=== PATIENT | male | born 1935 | race Caucasian/White ===

== ENCOUNTER 2021-07-16 07:41 | Observation (INO) ==
--- NOTE | 2021-06-11 14:47 | PAT Medication Instructions ---
Medication Instructions Date of Service June 11, 2021 Home Medications aspirin 81 mg tablet,delayed release 81 mg PO QAM atorvastatin 40 mg tablet 40 mg PO QAM isosorbide mononitrate 30 mg tablet,extended release 24 hr 30 mg PO QAM metoprolol tartrate 25 mg tablet 25 mg PO BID multivitamin with iron 1 tab PO QAM nitroglycerin 0.4 mg sublingual tablet 0.4 mg SL Q5M PRN vit C,N-Oe-isaeod-lutein-zeaxan 60 mg-13.5 mg-15 mg-2 mg-6 mg capsule 1 cap PO QAM Continue as directed nitroglycerin 0.4 mg sublingual tablet 0.4 mg SL Q5M PRN ASK your prescriber and surgeon aspirin 81 mg tablet,delayed release 81 mg PO QAM STOP taking 2 weeks before surgery (or as soon as possible if surgery is within 2 weeks) vit C,E-Qk-zdmzrw-lutein-zeaxan 60 mg-13.5 mg-15 mg-2 mg-6 mg capsule 1 cap PO QAM DO NOT take the morning of surgery multivitamin with iron 1 tab PO QAM Take morning of surgery With a small sip of water, OTHERWISE NOTHING TO EAT OR DRINK AFTER MIDNIGHT: atorvastatin 40 mg tablet 40 mg PO QAM isosorbide mononitrate 30 mg tablet,extended release 24 hr 30 mg PO QAM metoprolol tartrate 25 mg tablet 25 mg PO BID Take evening before surgery metoprolol tartrate 25 mg tablet 25 mg PO BID Other Notes If you have any questions please call us at [phone] or [phone] or [phone] or [phone]
--- NOTE | 2021-06-16 14:26 | Anesthesiology Consultation ---
Date of Service June 16, 2021 Assessment & Plan (1) Encounter for pre-operative examination: - Cardiac hx: Patient has not seen [facility] cardiology since 07/2020. Will arrange preop cardiac evaluation ([facility]/Dr. Ponce). - COVID screening: Per assessment on 06/16: No known COVID-19 positive contacts or current COVID-19 related symptoms. Travel screen negative. Patient vaccinated. Surgeon arranging preop COVID testing. Awaiting results. Chart Review Chart Review: Patient seen in Pre Admission Testing Teaching & Discussion Pre-Anesthesia Teaching/Discussion Notes: Instructed NPO after midnight before surgery,except medications with 15 cc of water. Medication instructions provided according to the PAT guidelines. History Surgery Operation Date: 07/16/21 12:35 Proposed Procedures p Right Total Shoulder Arthroplasty Reverse - Raffaele Rush DO Height/Weight Height: 5 ft 10 in Weight: 76 kg Allergies Allergy/AdvReac Type Severity Reaction Status Date / Time sulfamethoxazole Allergy Intermediate Rash Verified 06/11/21 11:58 [From Bactrim] tetracycline Allergy Intermediate Rash Verified 06/11/21 11:58 trimethoprim [From Bactrim] Allergy Intermediate Rash Verified 06/11/21 11:58 Medications Home Medications Medication Instructions Recorded Confirmed Last Taken Oxygen Home #1 ea 12/25/18 04/20/21 Unknown aspirin 81 mg tablet,delayed 81 mg PO QAM tab 12/25/18 06/11/21 Unknown release atorvastatin 40 mg tablet 40 mg PO QAM #30 tab 12/25/18 06/11/21 Unknown isosorbide mononitrate 30 mg 30 mg PO QAM #30 tab 12/25/18 06/11/21 Unknown tablet,extended release 24 hr metoprolol tartrate 25 mg tablet 25 mg PO BID #180 tab 12/25/18 06/11/21 Unknown multivitamin with iron 1 tab PO QAM 12/25/18 06/11/21 Unknown nitroglycerin 0.4 mg sublingual 0.4 mg SL Q5M PRN tab 12/25/18 06/11/21 Unknown tablet vit C,D-Qe-phsxiv-lutein-zeaxan 60 1 cap PO QAM cap 12/25/18 06/11/21 Unknown mg-13.5 mg-15 mg-2 mg-6 mg capsule Past Medical History Medical History Arteriosclerosis of coronary artery Chronic kidney disease, stage III (moderate) Coronary artery disease NIGEL to mid LAD and NIGEL x2 to RCA (2017 cardiac cath > distal RCA was found to be 100% occluded with jhyn-so-cvsfo collaterals. During that catheterization was also noted he had a trifurcate in left circumflex and he had a 70% stenosis involving 1 of the sub-branches > medically managed Follows with Dr. Ponce ([place]) Diverticulitis Heart attack 2014 History of anemia Hyperlipidemia Hypertension Moderate obstructive sleep apnea CPAP (compliant) Pancreatic duct dilated SSS (sick sinus syndrome) Asymptomatic, no hx syncope, cardio monitoring Exercise / Class Metabolic Activity II 4-5 Yardwork/Stairs/Walk up hill Past Family History Family History Sister Heart disease Cancer Father Myocardial infarction Past Surgical History Surgical History H/O arthroscopic knee surgery R/L H/O hernia repair H/O repair of rotator cuff left History of colonoscopy Hx of cardiac cath NIGEL to mid LAD and NIGEL x2 to RCA (2017 > medically managed Hx of cataract surgery R/L Hx of tonsillectomy Past Anesthesia History No Hx of Anesthesia Complications and No Family Hx of Anesthesia Complications History of PONV No Hx of PONV and No Hx of Motion Sickness Social History Smoking Status: Former smoker Do You Dip or Chew Tobacco: No Smoking End Date: Quit 50 years ago Hx Alcohol Use: Yes Alcohol type: hard liquor alcohol intake frequency: holidays/special occasions only Hx Substance Use: No substance use type: does not use Review of Systems Patient denies chest pain, shortness of breath, dyspnea on exertion, fever, chills, cough, wheezing, palpitations. Physical Exam Vital Signs VITALS BP 145/73 P 54 TEMP 97.6 SP02 99%RA RESP 16 PHYSICAL Full cervical extension range of motion. Full TMJ range of motion. TMD 3 finger breaths Mallampati Score 2 Dentition: missing side Lungs: minor lower lung base crackles Cardiac: regular rate and rhythm, no murmurs noted Spine: normal Carotid arteries: negative bruit Extremities: no edema Lab Results Anesthesia Preop Results Results Anesthesia Widget: WBC 5.74 K/uL (4.8-10.8) 04/27/22 Hgb 14.1 g/dL (14.0-18.0) 06/16/21 Hct 41.7 % (42-52) L 06/16/21 Plt 236 K/uL (130-400) 06/16/21 Na 139 mmol/L (136-145) 06/16/21 K 4.6 mmol/L (3.5-5.1) 06/16/21 Cl 106 mmol/L (98-107) 06/16/21 CO2 26 mmol/L (21-32) 06/16/21 BUN 31 mg/dl (6-23) H 06/16/21 Creat 1.26 mg/dl (0.6-1.4) 06/16/21 Glucose Level 99 mg/dl (70-99(Fasting)) 06/16/21 PT 10.7 Seconds (9.0-12.0) 06/16/21 PTT 28.5 Seconds (21.0-31.0) 06/16/21 INR 1.0 (0.9-1.1) 06/16/21 Blood Type O Positive 06/16/21 Antibody Screen NEGATIVE 06/16/21 Testing Electrocardiogram Date: 06/16/21 SB with first degree AVB at 51bpm. Inferior infarct, age undetermined. TWI lead III. NS TWA AVF. Will forward preop EKG to cardiology. Will be arranging preop cardiac evaluation appt. Chest X-Ray Date: 06/16/21 Findings: + NAD Echocardiogram Date: 03/24/15 EF 50%. Proximal inferior wall, proximal inferior lateral garcia are hypokinetic. Mid inferior wall is mildly hypokinetic. Rest of LV contracts normally. Grade 1 diastolic dysfunction. No significant valvular disease. Stress Test Date: 01/09/19 Type: nuclear Abnormal pharmacologic Cardiolite stress test demonstrating circumflex territory ischemia. Normal stress EKG. Mild hypokinesis of the inferior lateral wall. EF 64%. 79% MPHR. Pt had cardiac cath done in 2018 noting distal RCA was found to be 100% occluded with qbsj-oo-ftzhj collaterals and trifurcate in left circumflex and he had a 70% stenosis involving 1 of the sub-branches. Per [facility] cardio records, abnormal stress test in 2019 felt to be secondary to his known left circumflex disease and decision made to be medically managed. Cardiac Catheterization Date: 11/13/17 Mildly diseased left main. Moderately diseased LAD. Mid LAD has existing stent. 40% mid circumflex lesion. 70% lesion in the proximal portion of the first marginal. 100% lesion in the distal RCA. 50% lesion in the mid RCA.
--- NOTE | 2021-07-15 12:16 | History & Physical Report ---
Date of Service July 15, 2021 Assessment & Plan (1) Rotator cuff tear, right: We will proceed with a right reverse shoulder arthroplasty. Postoperatively he will be placed in a sling and kept overnight in the hospital for postop medical management. He plans to have the hospital set up home health upon discharge. 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 Primary Care Provider: Shamar Wei MD Ming is a pleasant 85-year-old male who was shoveling snow when he injured his right shoulder about 3 months ago. 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 I gave him injection a year ago which seemed to help. Unfortunately the last injection I gave did not help as much. He is unable to initiate forward elevation. After failing conservative treatment, he has elected to proceed with a right reverse shoulder arthroplasty. . Allergies Allergy/AdvReac Type Severity Reaction Status Date / Time sulfamethoxazole Allergy Intermediate Rash Verified 06/11/21 11:58 [From Bactrim] tetracycline Allergy Intermediate Rash Verified 06/11/21 11:58 trimethoprim [From Bactrim] Allergy Intermediate Rash Verified 06/11/21 11:58 Home Medications Medication Instructions Recorded Confirmed Type Oxygen Home #1 ea 12/25/18 04/20/21 History aspirin 81 mg tablet,delayed 81 mg PO QAM tab 12/25/18 06/11/21 History release atorvastatin 40 mg tablet 40 mg PO QAM #30 tab 12/25/18 06/11/21 History isosorbide mononitrate 30 mg 30 mg PO QAM #30 tab 12/25/18 06/11/21 History tablet,extended release 24 hr metoprolol tartrate 25 mg tablet 25 mg PO BID #180 tab 12/25/18 06/11/21 History multivitamin with iron 1 tab PO QAM 12/25/18 06/11/21 History nitroglycerin 0.4 mg sublingual 0.4 mg SL Q5M PRN tab 12/25/18 06/11/21 History tablet vit C,E-Pw-bljtgw-lutein-zeaxan 60 1 cap PO QAM cap 12/25/18 06/11/21 History mg-13.5 mg-15 mg-2 mg-6 mg capsule Past Med/Surg History Medical History Arteriosclerosis of coronary artery Chronic kidney disease, stage III (moderate) Coronary artery disease NIGEL to mid LAD and NIGEL x2 to RCA (2017 cardiac cath > distal RCA was found to be 100% occluded with nvgg-[id number]-iuxiq collaterals. During that catheterization was also noted he had a trifurcate in left circumflex and he had a 70% stenosis involving 1 of the sub-branches > medically managed Follows with Dr. Ponce ([place]) Diverticulitis Heart attack 2014 History of anemia Hyperlipidemia Hypertension Moderate obstructive sleep apnea CPAP (compliant) Pancreatic duct dilated SSS (sick sinus syndrome) Asymptomatic, no hx syncope, cardio monitoring Surgical History H/O arthroscopic knee surgery R/L H/O hernia repair H/O repair of rotator cuff left History of colonoscopy Hx of cardiac cath NIGEL to mid LAD and NIGEL x2 to RCA (2017 > medically managed Hx of cataract surgery R/L Hx of tonsillectomy Family History Sister Heart disease Cancer Father Myocardial infarction Social History Smoking Status: Former smoker Second Hand Exposure: No; Hx Alcohol Use: Yes Alcohol type: hard liquor Hx Substance Use: No Preferred Language: Nepalese Communication Ability: Effective Visual Impairment: No Limitations Hearing Ability: Normal 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 Physical Exam On physical examination of the right shoulder, he has about 40 degrees forward elevation and 40 degrees of abduction. He has 3 out of 5 muscle strength throughout. Constitutional WD/WN, vitals as above Eyes PERRL, conjunctivae normal, anicteric sclerae ENMT external ear and nose normal, oropharynx normal Neck trachea midline, no thyromegaly Respiratory normal respiratory effort Cardiovascular RRR, no murmur, no edema Gastrointestinal (Abdomen) normal bowel sounds, soft, nontender, no hepatosplenomegaly Psychiatric A+Ox3, euthymic affect Results & Data Results & Data Laboratory Results . Diagnostic Findings X-rays of the right shoulder show signs of cuff arthropathy. The humeral heads superiorly migrated in the glenoid. PG Care Time/CCT Total # of Minutes Spent Total Time Spent with Patient: Total time spent is greater than 50% in coordination of care (as documented) at patient's floor/unit and/or counseling patient: Coding Level of Care Code None Diagnoses Rotator cuff tear, right M75.101
[~2021-07-16 07:41] MED LIST: ACETAMINOPHEN 500 MG TAB PO SCH; BUPIVACAINE 0.5 % 5 MG/1 ML PF 10ML VIAL ONE; FAMOTIDINE 20 MG TAB PO SCH; GABAPENTIN 300 MG CAP PO SCH; Ketorolac (*for OR use only*) 30 MG, dexAMETHasone 4 MG, KETAMINE HCL (**OR use only) 1... INFIL SCH; LR 15ML/HR IV SCH; LR 60ML/HR IV SCH; TRANEXAMIC ACID 1,000 MG **IV Intra-op IV SCH; TRANEXAMIC ACID 1,000 MG **IV Pre-op IV SCH; ceFAZolin 1000MG 1,000 MG/7.5 ML SYR IV SCH; dexAMETHasone 4 MG TAB PO SCH
[2021-07-16] MEDS ORDERED: PROPOFOL IV EMULSION 10 MG/ML 20 ML VIAL IV ONE (08:30)
[2021-07-16] MEDS ORDERED: ONDANSETRON INJ 2 MG/ML 2 ML VIAL ONE (08:30)
[2021-07-16] MEDS ORDERED: DEXAMETHASONE SOD INJ 4 MG/ML VIAL ONE (08:30)
[2021-07-16] MEDS ORDERED: LIDOCAINE 2% 2 ML VIAL/AMP(20MG/ML) INFIL ONE (08:30)
[2021-07-16] MEDS ORDERED: fentaNYL citrate 100 MCG/2 ML VIAL ONE (08:31)
[2021-07-16] MEDS ORDERED: MIDAZOLAM HCL 1 MG/ML 2ML VIAL ONE (08:31)
--- NOTE | 2021-07-16 09:08 | History & Physical Bridge Note ---
Date of Service July 16, 2021 History & Physical Bridge Note I have examined the patient, reviewed the History & Physical and in the interval since the performance of the History & Physical I have noted the following changes of clinical significance: no changes noted
[2021-07-16] MEDS ORDERED: ONDANSETRON INJ 2 MG/ML 2 ML VIAL IV PRN ×2 (09:39→13:20)
[2021-07-16] MEDS ORDERED: fentaNYL citrate 100 MCG/2 ML VIAL IV PRN (09:39)
[2021-07-16] MEDS ORDERED: ATROPINE SULFATE 0.1 MG/ML 10ML SYR IV PRN (09:39)
[2021-07-16] MEDS ORDERED: ORTHO JOINT ANESTHETIC ONE (09:41)
[2021-07-16] MEDS ORDERED: ePHEDrine sulfate 50 MG/ML AMP ONE (10:44)
[2021-07-16] MEDS ORDERED: GLYCOPYRROLATE 0.2 MG/ML VIAL ONE (10:44)
--- NOTE | 2021-07-16 11:36 | Operative Report ---
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 long head of the biceps tendon I identified the patient and participated in the time-out.: Yes Procedure Operation Date: 07/16/21 10:10 Actual Procedures p Right Reverse Total Shoulder Arthroplasty(Right) with open biceps tenodesis as a distinct and separate procedure (modifier 59)- Raffaele Rush DO Surgeon Raffaele Rush, Business Services Sales Representative Raffaele Rojas PAC Estimated Blood Loss 150 Findings Consistent with Post-Op Diagnosis Specimens Right humeral head Complications none Disposition Disposition: Recovery Room Indications Sang is a pleasant 86-year-old male who is dealing with 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 X-rays clinical examination were diagnostic for cuff arthropathy. After failing conservative treatment, he elected proceed with a right reverse shoulder arthroplasty. Description of Procedure A CPT code modifier 59: The long head of the biceps tendon was enlarged and inflamed consistent with tendinopathy. A tenodesis was opted. This was a separate and distinct portion of the procedure. For these reasons, a CPT code modifier 59 will be added to this case. Implants used: I used a [employer] Comprehensive reverse total shoulder arthroplasty system with a size 13 press fit micro humeral stem, a standard humeral tray and a standard humeral bearing, a 25 mm small augment baseplate with a 6.5 mm central screw and superior and inferior locking screws, and a size 40 mm eccentric glenosphere. Ming arrived at [facility] for the above procedure. He was seen in the preoperative holding area and the operative extremity was identified and signed. He was given a preoperative antibiotic, TXA, and an interscalene nerve block. He was taken back to the operating room, laid on table in supine position, and put under general anesthesia. He was then put into the beachchair position. The shoulder was then prepped and draped in sterile fashion. A timeout was done and the patient and the operative extremity was properly identified. A deltopectoral approach was used. Dissection was taken down through the fascia and the deltoid was retracted laterally and the conjoined tendon was retracted medially. The anterior shoulder was exposed. The biceps groove was opened up and the biceps tendon was examined extensively. 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 The long head of the biceps tendon was then tenodesed to the upper border of the pectoralis major. This was a separate and distinct portion of the procedure. The subscapularis was then directly released off the lesser tuberosity with a peel technique. The inferior capsule was released and the humeral head was dislocated. A canal finding reamer was sent down the center of the humeral canal. Sequential reaming up to a size 13 reamer was done. Off that reamer, a proximal humeral resection guide was placed. The proximal humerus was resected at 135 of inclination and 25 of retroversion. Osteophytes were then removed and the glenoid was exposed. Time was spent doing a complete capsular and labral release. The glenoid guide was then placed in the inferior aspect of the glenoid. A 3.2 mm Steinmann pin was then placed into the glenoid vault at 10 of inclination. The glenoid baseplate was then reamed. The final size 25 mm small augment baseplate was then impacted in the place. A 6.5 mm central screw was then placed followed by superior and inferior locking screws. A 40 mm eccentric glenosphere was then impacted into place. Surrounding soft tissues were then injected with 100 cc an orthopedic pain control cocktail. The proximal humerus was then exposed. Sequential broaching of the humerus up to a size 13 broach was done. Off that broach a standard humeral tray was trialed. The shoulder was then reduced, brought through a full range of motion, and felt to be stable. The shoulder was then dislocated and the broach was removed. The final size 13 micro press-fit humeral stem was then impacted into place. A standard humeral bearing was then snapped onto a standard humeral tray. The humeral tray was then impacted onto the humeral stem. The shoulder was once again reduced, brought through a full range of motion, and felt to be stable. The subscapularis was then tenodesed back to the lesser tuberosity with transosseous FiberWire sutures and side to side sutures with the arm in 45 of external rotation. A dilute betadyne lavage was then done for 3 minutes. The joint was then irrigated with normal saline solution. Hemostasis was obtained. The interval was closed with 2-0 Vicryl suture. The skin was then closed with 2-0 Vicryl and michelle. A Silverlon dressing was placed and the arm was rested in a regular arm sling. He was then extubated and transferred to a hospital bed. He taken to the postanesthesia care unit in stable condition. He tolerated the procedure well. Raffaele Rojas PA-C, was present for the entire procedure. He was critical for patient positioning, prepping, draping, retraction exposure, wound closure and application of sterile dressing. I attest to the content of the Intraoperative Record and any orders documented therein. Any exceptions are noted below.
[2021-07-16] MEDS ORDERED: NITROGLYCERIN SL 0.4 MG/TAB TAB SL PRN (13:20)
[2021-07-16] MEDS ORDERED: oxyCODONE HCL IR 5 MG TAB (IMMEDIATE RELEASE) PO PRN (13:20)
[2021-07-16] MEDS ORDERED: bisacodyL 10 MG SUPP PR PRN (13:20)
[2021-07-16] MEDS ORDERED: SODIUM CHLORIDE 0.9% 1000ML 1,000 ML IV SCH (13:20)
[2021-07-16] MEDS ORDERED: HYDROmorphone INJ 0.5 MG/0.5 ML SYR IV PRN (13:20)
[2021-07-16] MEDS ORDERED: METOCLOPRAMIDE HCL INJ 5 MG/ML 2 ML VIAL IV PRN (13:20)
[2021-07-16] MEDS ORDERED: NALOXONE HCL 0.4 MG/1 ML VIAL/CARP IV PRN (13:20)
[2021-07-16] MEDS ORDERED: MAGNESIUM HYDROXIDE SUSP 30 ML UDC PO PRN (13:20)
--- NOTE | 2021-07-16 14:05 | XRay Report ---
XR shoulder RT min 2V routine CLINICAL HISTORY: Post shoulder surgery. Status post shoulder replacement COMPARISON STUDY: 05/25/2016 TECHNIQUE: 2 right shoulder views FINDINGS: The patient is status post total shoulder replacement with humeral head and glenoid compone nts. The prosthetic components are in anatomic alignment with no acute abnormality identified. Skin s taples are present from the recent procedure. IMPRESSION: 1. Status post total shoulder replacement ACT 112: Negative or not required by law. Electronically signed by: Wily Strong M.D. 07/16/2021 2:04 PM
--- NOTE | 2021-07-16 14:33 | Anesthesiology Progress Note ---
Date of Service July 16, 2021 Anesthesia Post Procedure Vital Signs Vital Signs: Temp Pulse Pulse Resp BP Pulse Ox 07/16/21 14:18 36.4 C L 61 18 98/60 L 96 07/16/21 13:48 36.7 C 63 16 110/68 97 07/16/21 13:15 36.4 C L 57 L 18 104/63 95 07/16/21 13:00 36.1 C L 61 16 101/59 L 95 07/16/21 12:50 62 16 96/64 L 95 07/16/21 12:40 36.1 C L 59 L 14 101/63 95 07/16/21 12:30 61 12 105/66 96 07/16/21 12:20 62 14 118/71 95 07/16/21 12:10 62 12 121/73 99 07/16/21 12:00 61 12 124/74 100 07/16/21 11:53 35.8 C L 62 12 124/69 99 07/16/21 08:04 36.7 C 56 L 20 129/71 99 Transfer of Care Handoff Completed per policy Notes Mental Status: alert / awake / arousable Patient Amnestic to Procedure: Yes Nausea / Vomiting: adequately controlled Pain: adequately controlled Airway Patency, RR, SpO2: stable & adequate BP & HR: stable & adequate Hydration State: stable & adequate Anesthetic Complications: no major complications apparent
[2021-07-16] MEDS: ACETAMINOPHEN 500 MG TAB PO SCH ×2 (16:51→21:11)
[2021-07-16] MEDS: ceFAZolin 2000MG 2,000 MG/15 ML SYR IV SCH (17:58)
[2021-07-16] MEDS: METOPROLOL TARTRATE 25 MG TAB PO SCH (19:51)
[2021-07-16] MEDS: DOCUSATE SODIUM 100 MG CAP PO SCH (19:55)
[2021-07-16] MEDS ORDERED: SENNA 8.6 MG TAB PO SCH (21:00)
[2021-07-17] MEDS: ceFAZolin 2000MG 2,000 MG/15 ML SYR IV SCH (01:30)
[2021-07-17] MEDS: ACETAMINOPHEN 500 MG TAB PO SCH (05:15)
--- NOTE | 2021-07-17 06:54 | Orthopedic Progress Note ---
Date of Service July 17, 2021 Assessment & Plan (1) Status post reverse total replacement of right shoulder: Overall is doing very well. He is not having much pain in the right shoulder. He will be seen by physical therapy today for ambulation and range of motion exercises. He can be discharged home later today. He will follow-up with orthopedics in 2 weeks. Anish Domínguez was seen and examined at bedside this morning. Overall is doing very well. Is not having any pain in the right shoulder. He was able to get some sleep last night. He has no complaints. Review of Systems All systems reviewed & are unremarkable except as noted in HPI & below. Physical Exam On physical examination of the right shoulder, the dressing is clean and dry. He still has numbness in his thumb and his index finger. The nerve block has not completely worn off yet. He is wearing his sling as instructed. Results & Data Results & Data Laboratory Results . Diagnostic Findings Postoperative x-rays of the right shoulder show the prosthesis to be in anatomic alignment without any evidence of fracture, desiccation, or loosening.. PG Care Time/CCT Total # of Minutes Spent Total Time Spent with Patient: Total time spent is greater than 50% in coordination of care (as documented) at patient's floor/unit and/or counseling patient: Coding Level of Care Code 81672 Post Operative Follow-Up Diagnoses Status post reverse total replacement of right shoulder Z96.611
--- NOTE | 2021-07-17 06:55 | Discharge Summary ---
Date of Service July 17, 2021 Admission HPI (Per Admitting) Ming is a pleasant 85-year-old male who was shoveling snow when he injured his right shoulder about 3 months ago. 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 I gave him injection a year ago which seemed to help. Unfortunately the last injection I gave did not help as much. He is unable to initiate forward elevation. After failing conservative treatment, he has elected to proceed with a right reverse shoulder arthroplasty. . Admission Exam (Per Admitting) On physical examination of the right shoulder, he has about 40 degrees forward elevation and 40 degrees of abduction. He has 3 out of 5 muscle strength throughout. Principal Diagnosis Same as "Discharge Diagnosis" noted below under Discharge Instructions. Discharge Exam On physical examination of the right shoulder, the dressing is clean and dry. He still has numbness in his thumb and his index finger. The nerve block has not completely worn off yet. He is wearing his sling as instructed. Discharge Data Procedures Performed Operation Date: 07/16/21 10:10 Actual Procedures p Right Reverse Total Shoulder Arthroplasty(Right) - Raffaele Rush DO Ordered Studies 07/16/21 05:00 US - OR guided needle placemen Routine Hospital Course (1) Status post reverse total replacement of right shoulder: On July 16, 2021 Sang arrived at [facility] and underwent a right reverse shoulder replacement without complication. He had a general anesthetic and a right interscalene nerve block. Postoperatively he was placed in a sling and transferred to the general orthopedic floors. His hospital course was uneventful. On postop day #1, his vital signs were stable and his pain was well controlled. He was able to participate well with physical therapy doing ambulation and range of motion exercises. He was then discharged home. He will follow-up with orthopedics in 2 weeks. PG Care Time/CCT Total # of Minutes Spent Total Time Spent with Patient: Total time spent is greater than 50% in coordination of care (as documented) at patient's floor/unit and/or counseling patient: Discharge Plan Discharge Items Patient Disposition: Home - Home Health Services Reason For Visit: DJD Shoulder Right, Rotator Cuff Tear Discharge Diagnosis: Right reverse shoulder replacement Activity: Per Instructions section Non-emergency contact: Surgeon Call non-emergency contact if: your wound has increased redness and your wound has increased drainage Follow-up/Referrals: Shamar Wei MD [Primary Care Provider] - Diet: Regular Addtl Attending Provider Instructions: Activity and Therapy Recommendations: * If you are using [facility] then therapy will be provided at your home until they feel you have accomplished all of your goals. * If you are using [facility] then Physical Therapy will be provided until they feel you are ready to start Outpatient Physical Therapy. * If you are not using home therapy then Outpatient Physical Therapy should start about 3-5 days from your day of surgery. Therapy will last about 8-12 weeks * Wear your sling for 3 weeks, unless otherwise instructed. You may remove your sling to shower and to dress, but otherwise, you should be in your sling at all times, including while sleeping * The shoulder replacement is very stable and you can use your hand while in the sling * You were shown a series of exercises in the hospital. Do these exercises daily including the exercises you were shown in physical therapy. Medications: * Narcotic You will likely be sent home from the hospital with a prescription for the narcotic pain medication that worked best throughout your stay. * Other medications may be prescribed for specific circumstances. If you have any questions, please call the office at . * Resume previous home medications unless otherwise instructed Dressing Care: Leave the Silverlon dressing in place for 7 days. After 7 days you may remove the dressing. If the incision is not draining then you may leave the michelle open to air. If there is a little bit of drainage or if the michelle are getting stuck on your clothing then cover the incision with a dry dressing. The michelle will be removed at your 2 week follow-up appointment. Showering: You may shower with the Silverlon dressing in place. Do not let the shower spray hit the dressing directly. Pat the Silverlon dressing dry. If the dressing becomes wet underneath, then simply remove the dressing. Keep the incision dry until you are 7 days out from the day of surgery. After 7 days you may remove the Silverlon dressing and shower with the michelle exposed. Let soapy water run over the michelle and pat them dry. Do not scrub or soak the incision. Things To Watch For: * Drainage from the incision site that occurs more than one week after your surgery. * Increased redness at the incision site. * Fever above 102 degrees Fahrenheit. * Unusual chest pain or shortness of breath. * Call [facility] at with any of the above problems Follow-Up Visit: Follow-up with Dr. Rush's PA (Raffaele Rojas) 2-3 weeks after your day of surgery . He will remove your michelle and answer any questions. If you have any additional questions or concerns, Dr Rush is usually in the office at the same time and will be available An appointment was probably scheduled when you signed-up for surgery in the office. If you have any questions call More detailed instructions as well as Frequently Asked Questions were provided in a folder by our office when you signed-up for surgery. Please review these instructions when you get home. If you have any further questions or concerns, please feel free to call the office at [phone] Pending Studies at Discharge: No Stand-Alone Forms: My [facility] Medications and DC Order Prescriptions: New tramadol 50 mg tablet 50 mg PO Q6H PRN (Reason: pain) Qty: 30 RF: 0 Continued multivitamin with iron tablet 1 tab PO QAM RF: 0 (DME) Oxygen Home Liters Per Minute See Dose Instructions .ROUTE .MEDSUPPLY Qty: 1 RF: 0 atorvastatin 40 mg tablet 40 mg PO QAM Qty: 30 RF: 0 metoprolol tartrate 25 mg tablet 25 mg PO BID Qty: 180 RF: 0 nitroglycerin 0.4 mg tablet, sublingual 0.4 mg SL Q5M PRN (Reason: Chest Pain) RF: 0 vit C,G-As-oqzlc-lutein-zeaxan 60 mg-13.5 mg- 15 mg-2 mg-6 mg capsule 1 cap PO QAM RF: 0 aspirin 81 mg tablet,delayed release (DR/EC) 81 mg PO QAM RF: 0 Discharge Orders: Discharge Order (Routine); Ordered 07/17/21 Ordered By: Raffaele Rush Admission Data Admit Date/Time: 07/16/21 11:56 Attending Provider: Raffaele Rush Admit Provider: Raffaele Rush Primary Care Provider: Shamar Wei
[2021-07-17] MEDS ORDERED: dexAMETHasone 4 MG TAB PO SCH (08:00)
[2021-07-17] MEDS ORDERED: MULTIVITAMIN TAB PO SCH (09:00)
[2021-07-17] MEDS ORDERED: ASPIRIN 81 MG ECTAB PO SCH (09:00)
[2021-07-17] MEDS ORDERED: ATORVASTATIN 40 MG TAB PO SCH (09:00)
[2021-07-17] MEDS: METOPROLOL TARTRATE 25 MG TAB PO SCH (09:21)
[2021-07-17] MEDS: DOCUSATE SODIUM 100 MG CAP PO SCH (09:21)
== END 2021-07-17 11:27 | disposition home or self-care (01) ==
LOC: ASU 07:41 → 3E 07:41

== ENCOUNTER 2022-07-08 08:32 | Observation (INO) ==
--- NOTE | 2022-06-06 15:27 | PAT Medication Instructions ---
Medication Instructions Date of Service June 06, 2022 Home Medications aspirin 81 mg tablet,delayed release 81 mg PO QAM atorvastatin 40 mg tablet 40 mg PO QAM metoprolol tartrate 25 mg tablet 25 mg PO BID multivitamin with iron 1 tab PO QAM nitroglycerin 0.4 mg sublingual tablet 0.4 mg sublingual Q5M PRN vit C,D-Sw-yyhugt-lutein-zeaxan 60 mg-13.5 mg-15 mg-2 mg-6 mg capsule 1 cap PO Q2D Continue as directed nitroglycerin 0.4 mg sublingual tablet 0.4 mg sublingual Q5M PRN(if needed) ASK your prescriber and surgeon aspirin 81 mg tablet,delayed release 81 mg PO QAM STOP taking 2 weeks before surgery (or as soon as possible if surgery is within 2 weeks) vit C,Z-Sd-iztveq-lutein-zeaxan 60 mg-13.5 mg-15 mg-2 mg-6 mg capsule 1 cap PO Q2D DO NOT take the morning of surgery multivitamin with iron 1 tab PO QAM Take morning of surgery With a small sip of water, OTHERWISE NOTHING TO EAT OR DRINK AFTER MIDNIGHT: atorvastatin 40 mg tablet 40 mg PO QAM metoprolol tartrate 25 mg tablet 25 mg PO BID Take evening before surgery metoprolol tartrate 25 mg tablet 25 mg PO BID Other Notes If you have any questions please call us at [phone] or [phone] or [phone] or [phone]
--- NOTE | 2022-06-13 10:38 | Anesthesiology Consultation ---
Date of Service June 13, 2022 Assessment & Plan (1) Encounter for pre-operative examination: - COVID screening: Per assessment on 06/13: No known COVID-19 positive contacts or current COVID-19 related symptoms. Travel screen negative. Patient vaccinated. At surgeon discretion if preop Covid testing being done. - Outpatient joint assessment: Pt currently scheduled for inpatient pathway. If surgeon requests review for outpatient joint pathway, patient is not recommended candidate for outpatient joint program from anesthesia standpoint. - S/P Right reverse TSA (07/16/21): LMA#5 Igel + PNB at [facility] - Cardiology visit (03/23/22): "In the late summer of 2017 he was developing symptoms concerning for angina. He also had an EKG that had worsening inferior and lateral T-wave inversions. Because of this I did refer him for cardiac catheterization.His distal RCA was found to be 100% occluded with dvaa-hn-nxssa collaterals.During that catheterization was also noted he had a trifurcate in left circumflex and he had a 70% stenosis involving 1 of the sub- branches. I saw him on January 04, 2019 he was complaining of chest discomfort. Fortunately his EKG was unrevealing. I did do a pharmacologic Cardiolite stress test and he does have left circumflex territory ischemia. His pharmacologic stress test does seem to correlate with his 70% sub branch stenosis from his left circumflex. He presents today for follow-up and has not had any angina.He hasborderlinebradycardia and I suspect has sick sinus syndrome but he is also asymptomatic and has not had any syncope. He does tell me he may require knee surgery.. Coronary artery disease:Fortunately he is not having any angina. he is doing well on his current medical regimen.. Sick sinus syndrome: He is asymptomatic and we will continue to monitor.. Preop evaluation: If he requires knee surgery I do not see any cardiac contraindication for this. I do recommend he stays on his aspirin during the time of surgery." Chart Review Chart Review: Acceptable Risk for Surgery and Patient seen in Pre Admission Testing Teaching & Discussion Pre-Anesthesia Teaching/Discussion Notes: Instructed NPO after midnight before surgery,except medications with 15 cc of water. Medication instructions provided according to the PAT guidelines. History Surgery Operation Date: 07/08/22 12:50 Proposed Procedures p Left Unicompartment Knee Arthroplasty versus - Raffaele A Victor Manuel, DO s Total Knee Arthroplasty - Raffaele Rush DO Height/Weight Height: 5 ft 10 in Weight: 74.4 kg Allergies Allergy/AdvReac Type Severity Reaction Status Date / Time sulfamethoxazole Allergy Intermediate Rash Verified 06/06/22 08:58 [From Bactrim] tetracycline Allergy Intermediate Rash Verified 06/06/22 08:58 trimethoprim [From Bactrim] Allergy Intermediate Rash Verified 06/06/22 08:58 Medications Home Medications Medication Instructions Recorded Confirmed Last Taken Oxygen Home #1 ea 12/25/18 08/26/21 Unknown aspirin 81 mg tablet,delayed 81 mg PO QAM 12/25/18 06/06/22 07/16/21 05:30 release atorvastatin 40 mg tablet 40 mg PO QAM #30 tabs 12/25/18 06/06/22 07/16/21 05:30 metoprolol tartrate 25 mg tablet 25 mg PO BID #180 tabs 12/25/18 06/06/22 07/16/21 05:30 multivitamin with iron 1 tab PO QAM 12/25/18 06/06/22 07/16/21 05:30 nitroglycerin 0.4 mg sublingual 0.4 mg sublingual Q5M PRN Chest 12/25/18 06/06/22 Unknown tablet Pain vit C,C-Pu-wsrfdh-lutein-zeaxan 60 1 cap PO Q2D 12/25/18 06/06/22 07/09/21 mg-13.5 mg-15 mg-2 mg-6 mg capsule Past Medical History Medical History Arteriosclerosis of coronary artery Chronic kidney disease, stage III (moderate) Coronary artery disease NIGEL to mid LAD and NIGEL x2 to RCA (2014) 2017 cardiac cath > distal RCA was found to be 100% occluded with [id number]-[id number] collaterals. During that catheterization was also noted he had a trifurcate in left circumflex and he had a 70% stenosis involving 1 of the sub-branches > medically managed Follows with Dr. Ponce ([place]) Diverticulitis 15+ years ago Heart attack 2015 History of anemia Hyperlipidemia Hypertension Moderate obstructive sleep apnea CPAP (compliant)- states his CPAP machine was recalled a couple years ago, still has not received a new one - working with PCP to get one, currently does use his recalled CPAP without water in it Pancreatic duct dilated SSS (sick sinus syndrome) Asymptomatic, no hx syncope, cardio monitoring (Dr Ponce) Exercise / Class Metabolic Activity III < 4 Walking/Shop/Light housework Past Family History Family History Sister Heart disease Cancer Father Myocardial infarction Past Surgical History Surgical History H/O arthroscopic knee surgery R/L H/O hernia repair H/O repair of rotator cuff left H/O shoulder replacement Right reverse TSA (07/16/21): LMA#5 Igel + PNB at [facility] History of colonoscopy Hx of cardiac cath NIGEL to mid LAD and NIGEL x2 to RCA (2014) 2017 > medically managed Hx of cataract surgery R/L Hx of tonsillectomy Past Anesthesia History No Hx of Anesthesia Complications and No Family Hx of Anesthesia Complications History of PONV No Hx of PONV and No Hx of Motion Sickness Social History Smoking Status: Former smoker tobacco type: cigarettes Do You Dip or Chew Tobacco: No Smoking End Date: Quit 50 years ago Hx Alcohol Use: Yes Alcohol type: hard liquor alcohol intake frequency: holidays/special occasions only Hx Substance Use: No substance use type: does not use Review of Systems Patient denies chest pain, shortness of breath, fever, chills, cough, wheezing, palpitations. Physical Exam Vital Signs VITALS BP 113/61 P 53 (high 40s-low 50s during PAT visit) TEMP 97.5 SP02 97%RA RESP 18 PHYSICAL Full cervical extension range of motion. Full TMJ range of motion. TMD 3 finger breaths Mallampati Score 2 Dentition: several missing teeth, several crowns Lungs: clear throughout to auscultation Cardiac: regular rate, bradycardia (+ occasional extra beat), no murmurs noted Spine: normal Carotid arteries: negative bruit Extremities: no LE edema Lab Results Anesthesia Preop Results Results Anesthesia Widget: WBC 7.06 K/ul (4.8-10.8) 06/13/22 Hgb 14.3 g/dl (14.0-18.0) 06/13/22 Hct 42.4 % (42.0-52.0) 06/13/22 Plt 229 K/uL (130-400) 06/13/22 Na 140 mmol/L (136-145) 06/13/22 K 4.8 mmol/L (3.5-5.1) 06/13/22 Cl 109 mmol/L (98-107) H 06/13/22 CO2 27 mmol/L (21-32) 06/13/22 BUN 33 mg/dl (6-23) H 06/13/22 Creat 1.41 mg/dl (0.6-1.4) H 06/13/22 Glucose Level 96 mg/dl (70-99(Fasting)) 06/13/22 PT 11.0 Seconds (9.0-12.0) 06/13/22 PTT 28.2 Seconds (21.0-31.0) 06/13/22 INR 1.0 (0.9-1.1) 06/13/22 Blood Type O Positive 06/13/22 Antibody Screen NEGATIVE 06/13/22 Testing Electrocardiogram Date: 06/13/22 SB with 1st degree AVB with occasional PVCs at 58bpm. "Otherwise normal ECG" Chest X-Ray Date: 06/13/22 FINDINGS: Right shoulder arthroplasty is incidentally noted. Mild elevation of the right hemidiaphragm is unchanged. Lungs are clear. There is no pneumothorax or pleural effusion. Cardiac size is normal. Mediastinal contours are normal. There is no evidence for pulmonary edema. IMPRESSION: No acute cardiopulmonary findings. No change in appearance of the chest. Echocardiogram Date: 03/24/15 EF 50%. Proximal inferior wall, proximal inferior lateral garcia are hypokinetic. Mid inferior wall is mildly hypokinetic. Rest of LV contracts normally. Grade 1 diastolic dysfunction. No significant valvular disease. Stress Test Date: 01/09/19 Type: nuclear Abnormal pharmacologic Cardiolite stress test demonstrating circumflex territory ischemia. Normal stress EKG. Mild hypokinesis of the inferior lateral wall. EF 64%. 79% MPHR. Pt had cardiac cath done in 2018 noting distal RCA was found to be 100% occluded with mvls-ry-srnyc collaterals and trifurcate in left circumflex and he had a 70% stenosis involving 1 of the sub-branches. Per [facility] cardio records, abnormal stress test in 2019 felt to be secondary to his known left circumflex disease and decision made to be medically managed. Cardiac Catheterization Date: 11/13/17 Mildly diseased left main. Moderately diseased LAD. Mid LAD has existing stent. 40% mid circumflex lesion. 70% lesion in the proximal portion of the first marginal. 100% lesion in the distal RCA. 50% lesion in the mid RCA. COVID-19 Risk Screen Screening Information COVID-19 Screen Date: 06/13/22 Exposure 21 Days Family/Household +COVID Last 21 Days: No Exposure 10 Days Any COVID Exposure Last 10 Days: No Symptoms Last 10 Days Experienced COVID Sx Last 10 Days: No + COVID 0-90 Days COVID + in Last 0-90 Days: No
--- NOTE | 2022-07-07 07:50 | History & Physical Report ---
Date of Service July 07, 2022 Assessment & Plan (1) Osteoarthritis of left knee: We will proceed with a left partial knee replacement surgery. Postoperatively he will be started on aspirin for DVT prophylaxis and kept overnight in the hospital for postop medical management. History of Present Illness Chief Complaint: Osteoarthritis of the left knee. Primary Care Provider: Shamar Wei MD Ming is a pleasant 86-year-old male who has been dealing with chronic increasing left knee pain. X-rays and clinical examination have been diagnostic for medial compartmental arthritis of the left knee. He has failed years of conservative treatment, including multiple injections. Unfortunately, the injections only last him a week or so. He was not able to mathew this year for the first time in 30 years because of his knee pain. All of his knee pain is located medially. After failing conservative treatment, he has elected proceed with a left partial knee replacement surgery. Allergies Allergy/AdvReac Type Severity Reaction Status Date / Time sulfamethoxazole Allergy Intermediate Rash Verified 06/06/22 08:58 [From Bactrim] tetracycline Allergy Intermediate Rash Verified 06/06/22 08:58 trimethoprim [From Bactrim] Allergy Intermediate Rash Verified 06/06/22 08:58 Home Medications Medication Instructions Recorded Confirmed Type Oxygen Home #1 ea 12/25/18 08/26/21 History aspirin 81 mg tablet,delayed 81 mg PO QAM 12/25/18 06/06/22 History release atorvastatin 40 mg tablet 40 mg PO QAM #30 tabs 12/25/18 06/06/22 History metoprolol tartrate 25 mg tablet 25 mg PO BID #180 tabs 12/25/18 06/06/22 Histo ry multivitamin with iron 1 tab PO QAM 12/25/18 06/06/22 History nitroglycerin 0.4 mg sublingual 0.4 mg sublingual Q5M PRN Chest 12/25/18 06/06/22 History tablet Pain vit C,O-Yf-zwiljp-lutein-zeaxan 60 1 cap PO Q2D 12/25/18 06/06/22 History mg-13.5 mg-15 mg-2 mg-6 mg capsule Past Med/Surg History Medical History Arteriosclerosis of coronary artery Chronic kidney disease, stage III (moderate) Coronary artery disease NIGEL to mid LAD and NIGEL x2 to RCA (2017 cardiac cath > distal RCA was found to be 100% occluded with [id number]-qc-piypz collaterals. During that catheterization was also noted he had a trifurcate in left circumflex and he had a 70% stenosis involving 1 of the sub-branches > medically managed Follows with Dr. Ponce ([place]) Diverticulitis 15+ years ago Heart attack 2014 History of anemia Hyperlipidemia Hypertension Moderate obstructive sleep apnea CPAP (compliant)- states his CPAP machine was recalled a couple years ago, still has not received a new one - working with PCP to get one, currently does use his recalled CPAP without water in it Pancreatic duct dilated SSS (sick sinus syndrome) Asymptomatic, no hx syncope, cardio monitoring (Dr Ponce) Surgical History H/O arthroscopic knee surgery R/L H/O hernia repair H/O repair of rotator cuff left H/O shoulder replacement Right reverse TSA (07/16/21): LMA#5 Igel + PNB at [facility] History of colonoscopy Hx of cardiac cath NIGEL to mid LAD and NIGEL x2 to RCA (2017 > medically managed Hx of cataract surgery R/L Hx of tonsillectomy Family History Sister Heart disease Cancer Father Myocardial infarction Social History Smoking Status: Former smoker Second Hand Exposure: No; Do You Dip or Chew Tobacco: No; Hx Alcohol Use: Yes Alcohol type: hard liquor Hx Substance Use: No Preferred Language: Setswana Communication Ability: Effective Visual Impairment: No Limitations Hearing Ability: Normal [employer] 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 Physical Exam On physical examination of left knee, he has a slight varus deformity. He is tenderness palpation of the distal medial femoral condyle and over the medial joint line.. Constitutional WD/WN, vitals as above Eyes PERRL, conjunctivae normal, anicteric sclerae ENMT external ear and nose normal, oropharynx normal Neck trachea midline, no thyromegaly Respiratory normal respiratory effort, lungs clear to auscultation Cardiovascular RRR, no murmur, no edema Gastrointestinal (Abdomen) normal bowel sounds, soft, nontender, no hepatosplenomegaly Skin no rashes, warm and dry Psychiatric A+Ox3, euthymic affect Results & Data Results & Data Laboratory Results . Diagnostic Findings X-rays of the left knee show medial compartmental arthritis with joint space narrowing, osteophyte formation, and knln-iv-zrzh articulation. PG Care Time/CCT Total # of Minutes Spent Total Time Spent with Patient: Total time spent is greater than 50% in coordination of care (as documented) at patient's floor/unit and/or counseling patient: Coding Level of Care Code None Diagnoses Osteoarthritis of left knee M17.12
[~2022-07-08 08:32] MED LIST changes: -BUPIVACAINE 0.5 % 5 MG/1 ML PF 10ML VIAL ONE; -GABAPENTIN 300 MG CAP PO SCH; +GABAPENTIN 600 MG DOSE PO SCH; -Ketorolac (*for OR use only*) 30 MG, dexAMETHasone 4 MG, KETAMINE HCL (**OR use only) 1... INFIL SCH; +ORTHO JOINT MIX INFIL SCH; +ROPIVACAINE 0.5% 5 MG/ML 30 ML VIAL ONE; -ceFAZolin 1000MG 1,000 MG/7.5 ML SYR IV SCH; +ceFAZolin 2000MG 2,000 MG/15 ML SYR IV SCH
[2022-07-08] MEDS ORDERED: MIDAZOLAM HCL 1 MG/ML 2ML VIAL ONE (11:08)
[2022-07-08] MEDS ORDERED: ONDANSETRON INJ 2 MG/ML 2 ML VIAL ONE (11:08)
[2022-07-08] MEDS ORDERED: fentaNYL citrate PF 100 MCG/2 ML VIAL ONE (11:08)
[2022-07-08] MEDS ORDERED: PROPOFOL IV EMULSION 10 MG/ML 20 ML VIAL IV ONE ×2 (11:08→11:09)
[2022-07-08] MEDS ORDERED: LIDOCAINE 2% 2 ML VIAL/AMP(20MG/ML) INFIL ONE (11:08)
--- NOTE | 2022-07-08 11:42 | History & Physical Bridge Note ---
Date of Service July 08, 2022 History & Physical Bridge Note I have examined the patient, reviewed the History & Physical and in the interval since the performance of the History & Physical I have noted the following changes of clinical significance: no changes noted
[2022-07-08] MEDS ORDERED: ePHEDrine sulfate 50 MG/ML AMP IV PRN (12:10)
[2022-07-08] MEDS ORDERED: ATROPINE SULFATE 0.1 MG/ML 10ML SYR IV PRN (12:10)
[2022-07-08] MEDS ORDERED: ONDANSETRON INJ 2 MG/ML 2 ML VIAL IV PRN ×2 (12:10→16:14)
[2022-07-08] MEDS ORDERED: HYDROmorphone INJ 1 MG/ML SYRINGE IV PRN (12:10)
[2022-07-08] MEDS ORDERED: ORTHO JOINT ANESTHETIC ONE (12:38)
[2022-07-08] MEDS ORDERED: ePHEDrine sulfate 50 MG/ML AMP ONE (13:40)
--- NOTE | 2022-07-08 14:18 | Operative Report ---
PG Post Operative Report Pre & Post Diagnosis Operation Date: 07/08/22 12:00 Pre-Op Diagnosis: Osteoarthritis of left knee Post-Op Diagnosis: Osteoarthritis of left knee I identified the patient and participated in the time-out.: Yes Procedure Operation Date: 07/08/22 12:00 Actual Procedures p Left Unicompartment Knee Arthroplasty(Left) - Raffaele Rush DO Surgeon Raffaele Rush DO [employer]ed [employer] Panels Developer Raffaele Rojas PA-C Estimated Blood Loss 30 Findings Consistent with Post-Op Diagnosis Specimens Left femoral and tibial bone Description of Procedure Implants used: I used a Chapis persona partial knee replacement system with a size 6 femur, a size G tibia, and an 8 mm polyethylene insert. The components were cemented with Biomet cement. On July 08, 2022 Ming arrived at [facility] for the above procedure. He was seen in the preoperative holding area and the operative extremity was identified and signed. He was given a preoperative antibiotic and a spinal anesthetic. He was taken back the operating room and laid on the table in supine position. He was put under basic sedation. The left knee was then prepped and draped in sterile fashion. A timeout was done. The patient and the operative extremity was properly identified. A midline incision was made just medial to the patella. Dissection was taken down through the fascia. A small mid vastus medial arthrotomy was used. A small portion of the fat pad was excised. The medial retinaculum was released. The knee was then flexed. There was significant arthritis in the medial compartment. The lateral and patellofemoral compartments looked fine. The ACL was intact. The medial meniscus was then removed. The decision was made to do a partial knee replacement. An external tibial guide was then placed. 4 mm was resected off the tibial plateau. The leg was then brought to full extension. An 8 mm distal cutting block was pinned into place. The distal femur was then resected. The knee was then flexed. The knee measured to be a size 6. A 6 cutting block was then pinned in the place. Posterior and chamfer cuts were then made. 2 drill holes were made. The cutting block was removed. The tibia was measured to be a size G. The tibial cutting block was then impacted into place. 2 drill holes were made in the tibia. The femoral trial was then impacted into place. An 8 mm polyethylene insert was then snapped into place. The knee was brought through full range of motion and felt to be stable. All trial components were then removed. The final components were then cemented into place with Biomet cement. An 8 mm polyethylene insert was then snapped into place once cement had hardened. The wound was irrigated. Surrounding soft tissues were injected with 60 cc of an orthopedic pain control cocktail. The extensor mechanism was closed with #1 Vicryl. Skin was closed with 2-0 Vicryl, 3 oh VueLock suture, and michelle. She was then placed in a soft compressive dressing. He was then transferred to a hospital bed and taken to the postanesthesia care unit in stable condition. He tolerated the procedure well. Raffaele Rojas PA-C, was present for the entire procedure. He was critical for patient positioning, prepping, draping, retraction exposure, wound closure and application of sterile dressing. I attest to the content of the Intraoperative Record and any orders documented therein. Any exceptions are noted below.
--- NOTE | 2022-07-08 15:15 | Anesthesiology Progress Note ---
Date of Service July 08, 2022 Anesthesia Post Procedure Vital Signs Vital Signs: Temp Pulse Pulse Resp BP Pulse Ox O2 Del Method 07/08/22 15:05 36.2 C L 64 14 132/59 L 99 Oxymask 07/08/22 14:55 64 14 128/69 98 Oxymask 07/08/22 14:45 66 12 135/68 100 Oxymask 07/08/22 14:35 61 13 127/72 100 Oxymask 07/08/22 14:25 36.1 C L 64 14 130/70 100 Oxymask 07/08/22 09:32 36.4 C L 53 L 20 128/72 20 L Room Air O2 Flow Rate 07/08/22 15:05 2 07/08/22 14:55 2 07/08/22 14:45 4 07/08/22 14:35 6 07/08/22 14:25 6 07/08/22 09:32 Transfer of Care Handoff Completed per policy Notes Mental Status: alert / awake / arousable Patient Amnestic to Procedure: Yes Nausea / Vomiting: adequately controlled Pain: adequately controlled Airway Patency, RR, SpO2: stable & adequate BP & HR: stable & adequate Hydration State: stable & adequate Neuraxial Anesthesia: was administered and sensory block is resolving Anesthetic Complications: no major complications apparent
--- NOTE | 2022-07-08 15:21 | XRay Report ---
LEFT KNEE 2 VIEWS History: Left knee medial unicondylar prosthesis. Degenerative arthritis. Postop. FINDINGS: The patient is status post a left medial knee unicondylar prosthesis. The hardware is intac t. No fracture or dislocation. Skin michelle are in place. IMPRESSION: Left medial knee unicondylar prosthesis. No evidence for hardware complication. ACT 112: Negative or not required by law. Electronically signed by: Chirag Dumas M.D. 07/08/2022 3:20 PM
[2022-07-08] MEDS ORDERED: MAGNESIUM HYDROXIDE SUSP 30 ML UDC PO PRN (16:14)
[2022-07-08] MEDS ORDERED: NALOXONE HCL 0.4 MG/1 ML VIAL/CARP IV PRN (16:14)
[2022-07-08] MEDS ORDERED: HYDROmorphone INJ 0.5 MG/0.5 ML SYR IV PRN (16:14)
[2022-07-08] MEDS ORDERED: oxyCODONE HCL IR 5 MG TAB (IMMEDIATE RELEASE) PO PRN (16:14)
[2022-07-08] MEDS ORDERED: NITROGLYCERIN SL 0.4 MG/TAB TAB SL PRN (16:14)
[2022-07-08] MEDS ORDERED: METOCLOPRAMIDE HCL INJ 5 MG/ML 2 ML VIAL IV PRN (16:14)
[2022-07-08] MEDS ORDERED: bisacodyL 10 MG SUPP PR PRN (16:14)
[2022-07-08] MEDS: SODIUM CHLORIDE 0.9% 1000ML 1,000 ML IV SCH (16:50)
[2022-07-08] MEDS: METOPROLOL TARTRATE 25 MG TAB PO SCH (20:23)
[2022-07-08] MEDS: ceFAZolin 2000MG 2,000 MG/15 ML SYR IV SCH (20:23)
[2022-07-08] MEDS: DOCUSATE SODIUM 100 MG CAP PO SCH (20:24)
[2022-07-08] MEDS: ASPIRIN 81 MG ECTAB PO SCH (20:24)
[2022-07-08] MEDS ORDERED: SENNA 8.6 MG TAB PO SCH (21:00)
[2022-07-08] MEDS: ACETAMINOPHEN 500 MG TAB PO SCH (21:45)
[2022-07-09] MEDS: SODIUM CHLORIDE 0.9% 1000ML 1,000 ML IV SCH (03:28)
[2022-07-09] MEDS: ceFAZolin 2000MG 2,000 MG/15 ML SYR IV SCH (04:43)
[2022-07-09] MEDS: ACETAMINOPHEN 500 MG TAB PO SCH (05:47)
--- NOTE | 2022-07-09 06:08 | Orthopedic Progress Note ---
Date of Service July 09, 2022 Assessment & Plan (1) Status post left partial knee replacement: Overall he is doing very well. He is not having much pain in the left knee. He will be seen by physical therapy today for ambulation and range of motion exercises. He is on aspirin for DVT prophylaxis. He can be discharged home later today. He will follow-up with orthopedics in 2 weeks. Anish Lai was seen and examined at bedside this morning. Overall is doing very well. Is not having much pain in the left knee. He has been up and ambulating to the bathroom. He has no complaints.. Review of Systems All systems reviewed & are unremarkable except as noted in HPI & below. Physical Exam On physical examination left knee, the dressing is clean and dry. He is active dorsiflexion plantarflexion of his left ankle.. Results & Data Results & Data Laboratory Results . Diagnostic Findings Postoperative x-rays of the left knee show the prosthesis to be in anatomic alignment without any evidence of fracture, screws, or loosening.. PG Care Time/CCT Total # of Minutes Spent Total Time Spent with Patient: Total time spent is greater than 50% in coordination of care (as documented) at patient's floor/unit and/or counseling patient: Coding Level of Care Code 23287 Post Operative Follow-Up Diagnoses Status post left partial knee replacement Z96.652
--- NOTE | 2022-07-09 06:09 | Discharge Summary ---
Date of Service July 09, 2022 Admission HPI (Per Admitting) Ming is a pleasant 86-year-old male who has been dealing with chronic increasing left knee pain. X-rays and clinical examination have been diagnostic for medial compartmental arthritis of the left knee. He has failed years of conservative treatment, including multiple injections. Unfortunately, the injections only last him a week or so. He was not able to mathew this year for the first time in 30 years because of his knee pain. All of his knee pain is located medially. After failing conservative treatment, he has elected proceed with a left partial knee replacement surgery. Admission Exam (Per Admitting) On physical examination of left knee, he has a slight varus deformity. He is tenderness palpation of the distal medial femoral condyle and over the medial joint line.. Principal Diagnosis Same as "Discharge Diagnosis" noted below under Discharge Instructions. Discharge Exam On physical examination left knee, the dressing is clean and dry. He is active dorsiflexion plantarflexion of his left ankle.. Discharge Data Procedures Performed Operation Date: 07/08/22 12:00 Actual Procedures p Left Unicompartment Knee Arthroplasty(Left) - Raffaele Rush DO Ordered Studies 07/08/22 05:00 US - OR guided needle placemen Routine Hospital Course (1) Status post left partial knee replacement: On July 08, 2022 Ming arrived at [facility] and underwent a left partial knee replaced without complication. He had a spinal anesthetic. Posto peratively he was started on aspirin for DVT prophylaxis and transferred to the general orthopedic floors. His hospital course was uneventful. On postop day #1, his vital signs were stable and his pain was well controlled. He was able to participate well with physical therapy doing ambulation and range of motion exercises. He was then discharged home. He will follow-up with orthopedics in 2 weeks. PG Care Time/CCT Total # of Minutes Spent Total Time Spent with Patient: Total time spent is greater than 50% in coordination of care (as documented) at patient's floor/unit and/or counseling patient: Discharge Plan Discharge Items Patient Disposition: Home - Home Health Services Reason For Visit: POST OP Discharge Diagnosis: Left partial knee replacement Activity: Per Instructions section Non-emergency contact: Surgeon Call non-emergency contact if: your wound has increased redness and your wound has increased drainage Follow-up/Referrals: Shamar Wei MD [Primary Care Provider] - Diet: Regular Addtl Attending Provider Instructions: Activity and Therapy Recommendations: * If you are using [facility] then therapy will be provided at your home until they feel you have accomplished all of your goals. * If you are using [facility] then Physical Therapy will be provided until they feel you are ready to start Outpatient Physical Therapy. * If you are not using home therapy then Outpatient Physical Therapy should start about 3-5 days from your day of surgery. Therapy will last about 6-10 weeks * It is important not to put a pillow under your knee when you are relaxing or sleeping. It is just as important to make sure you are getting your knee perfectly straight as it is to regain your knee bend. * You were shown a series of exercises in the hospital. Do these exercises three times each day including the exercises you were shown in physical therapy. * Get up and walk several times each day. For the first four weeks, try not to stand or walk for more than one hour at a time. If you do stand or walk for more than one hour, you will not hurt anything, but your leg will likely swell. * As you feel comfortable, you may change from the walker or crutches to a cane and then to independent walking. Medications: * Narcotic You will likely be sent home from the hospital with a prescription for the narcotic pain medication that worked best throughout your stay. * Aspirin Most patients will be required to take Aspirin 81mg twice a day for 6 weeks after surgery. This is obtained [id number] and a prescription is not necessary. * Other medications may be prescribed for specific circumstances. If you have any questions, please call the office at . * Resume previous home medications unless otherwise instructed TEDs/Elastic Stockings: The white elastic stockings help limit swelling and prevent blood clots from forming in your legs.~ The more you wear them, the more they work. Wear them for six weeks. Dressing Care: The dressing can be changed after physical therapy on postop day #1. Daily dry dressing changes for a few days, especially if the incision is still draining some. If the incision is not draining then you may leave the michelle open to air. If there is a little bit of drainage or if the michelle are getting stuck on your clothing then cover the incision with a dry dressing. The michelle will be removed at your 2 week follow-up appointment. Showering: You may shower 5 days from the day of surgery as long as the incision is no longer draining. You may shower with the michelle exposed. Let soapy water run over the michelle and pat them dry. Do not scrub or soak the incision. Things To Watch For: * Drainage from the incision site that occurs more than one week after your surgery. * Increased redness at the incision site. * Fever above 102 degrees Fahrenheit. * Unusual chest pain or shortness of breath. * Call [facility] at with any of the above problems Follow-Up Visit: Follow-up with Dr. Rush's PA (Raffaele Rojas) 2-3 weeks after your day of surgery. He will remove your michelle and answer any questions. If you have any additional questions or concerns, Dr Rush is usually in the office at the same time and will be available An appointment was probably scheduled when you signed-up for surgery in the office. If you have any questions call Office Instructions: More detailed instructions as well as Frequently Asked Questions were provided in a folder by our office when you signed-up for surgery. Please review these instructions when you get home. If you have any further questions or concerns, please feel free to call the office at [phone] Pending Studies at Discharge: No Stand-Alone Forms: My [facility] Medications and DC Order Prescriptions: New tramadol 50 mg tablet 50 mg PO Q6H PRN (Reason: pain) Qty: 30 0RF Continued multivitamin with iron tablet 1 tab PO QAM (DME) Oxygen Home Liters Per Minute See Dose Instructions .ROUTE .MEDSUPPLY Qty: 1 Rx Instructions: As directed atorvastatin 40 mg tablet 40 mg PO QAM Qty: 30 metoprolol tartrate 25 mg tablet 25 mg PO BID Qty: 180 nitroglycerin 0.4 mg tablet, sublingual 0.4 mg SL Q5M PRN (Reason: Chest Pain) vit C,D-Zr-awxeu-lutein-zeaxan 60 mg-13.5 mg- 15 mg-2 mg-6 mg capsule 1 cap PO Q2D Changed aspirin 81 mg tablet,delayed release (DR/EC) 81 mg PO BID 42 Days Qty: 0 0RF Admission Data Admit Date/Time: 07/08/22 14:24 Attending Provider: Raffaele Rush Admit Provider: Raffaele Rush Primary Care Provider: Shamar Wei
[2022-07-09] MEDS: METOPROLOL TARTRATE 25 MG TAB PO SCH (07:38)
[2022-07-09] MEDS: DOCUSATE SODIUM 100 MG CAP PO SCH (07:39)
[2022-07-09] MEDS: ASPIRIN 81 MG ECTAB PO SCH (07:39)
[2022-07-09] MEDS ORDERED: dexAMETHasone 4 MG TAB PO SCH (08:00)
[2022-07-09] MEDS ORDERED: ATORVASTATIN 40 MG TAB PO SCH (09:00)
[2022-07-09] MEDS ORDERED: MULTIVITAMIN TAB PO SCH (09:00)
== END 2022-07-09 11:29 | disposition home health service (06) ==
LOC: 3E 08:32 → ASU 08:32